=== PATIENT | male | born 1930 | race Caucasian/White ===

== ENCOUNTER 2017-01-18 22:43 | Inpatient (IN) | payer MEDICARE, OTHER ==
[~2017-01-18] VITALS: Ht 180.3 cm; Wt 77.1 kg
--- NOTE | ~2017-01-18 | CN ---
Consultation Report [facility] [address] [place]. [address] NAME: GOPAL TORRES : 31 STATUS : ADM IN [facility]#: [id number] AGE: 86 ADM/REG DATE : 01/19/17 MR#: [id number] REPORT SERV DATE: 01/22/17 DICTATED BY: JAY SAHA DATE: 01/21/17 REPORT STATUS : Draft TRANSCRIBED BY: MODL DATE: 01/21/17 DATE OF CONSULTATION: 01/21/2017 HISTORY OF PRESENT ILLNESS: This is an 86-year-old white male admitted with aspiration pneumonia, fever, dysarthria, and dysphagia; and had swallowing study back in September which he failed, he declined PEG at that time. Underwent stem therapy in [place] with no apparent improvement. Five to six weeks ago had repeat swallowing study which he did not pass. He has had chronic kidney disease, COPD, hypertension, spinal stenosis. He is on home O2. SOCIAL HISTORY: Negative. FAMILY HISTORY: Negative. He has been found to have positive XUAN of 1:160 and has been undergoing a neuro workup. MRI without contrast of the brain is negative. MRI with contrast is pending. LP was performed today looking and diagnosing ALS. White count was 15,000 on admission now 10,000, hemoglobin 15.7, platelets 192,000. He has a past history of colon polyps, history of hypertension. Family history positive for colon cancer. He has had inguinal hernia repairs bilaterally. Last EGD was in 02/2016. Dilatation with no improvement in symptoms. CT of abdomen this admission revealed diverticular disease and also . PHYSICAL EXAMINATION: GENERAL: Elderly white male with dysarthria, alert. HEENT: Anicteric. NECK: Negative. CHEST: Scattered rhonchi. Few rales. HEART: Regular rhythm without murmur or gallop. ABDOMEN: Soft, nontender. Bowel sounds active. EXTREMITIES AND NEUROLOGIC: Pertinent for dysarthria. ASSESSMENT: 1. Dysarthria with positive XUAN, neuro workup underway. 2. Dysphagia. History of failed swallowing study. has refused PEG in the past. 3. Chronic obstructive pulmonary disease on home O2. 4. Hypertension. 5. Aspiration pneumonia. 6. Chronic kidney disease. SUGGESTION: 1. The patient would like repeat swallowing study prior to making some decision on PEG. He has refused on one occasion. We will repeat swallowing study and then await his decision of possible PEG. Consultation Report [facility] [address] [place]. [address] NAME: GOPAL TORRES : 31 STATUS : ADM IN PAT#: [id number] AGE: 86 ADM/REG DATE : 01/19/17 MR#: [id number] REPORT SERV DATE: 01/22/17 DICTATED BY: JAY SAHA DATE: 01/21/17 REPORT STATUS : Draft TRANSCRIBED BY: NOEL DATE: 01/21/17 DC/NOEL Jay Saha M.D. / [id number] CC: DO Arnold Farmer DO
--- NOTE | ~2017-01-18 | CN ---
Consultation Report [facility] [address] [place]. [address] NAME: GOPAL TORRES : 31 STATUS : ADM IN PAT#: [id number] AGE: 86 ADM/REG DATE : 01/19/17 MR#: [id number] REPORT SERV DATE: 01/19/17 DICTATED BY: DATE: REPORT STATUS : Draft TRANSCRIBED BY: MODL DATE: 01/19/17 NEUROLOGY CONSULTATION DATE OF CONSULTATION: 01/19/2017 REASON FOR CONSULT: Dysphagia, dysarthria. HISTORY OF PRESENT ILLNESS: This is an 86-year-old male, who presented to [facility] secondary to fever as well as worsening dysarthria and dysphagia, with the patient's symptoms started roughly two to three months ago. The patient has had an evaluation with MRI as well as speech therapy. Has completed outpatient speech therapy treatment and with repeat swallow study, was noted to have worsening dysphagia. The patient in addition was noted to have persistent dysarthria, but denies any diplopia and denies any focal weakness or numbness. The patient denies any similar symptoms in the past and denies any waxing and waning of dysarthria and dysphagia, with the patient denies any symptom worsening with fatigue or exertion. The patient at baseline does have COPD, with the patient require use of oxygen, does not appear to have any significant worsening. The patient has had back pain and has recent adjustment of Neurontin, increased dosage to 200 mg p.o. b.i.d., which the patient reports after adjustment of Neurontin, the patient's gait appeared to have improved. The patient's denies any numbness in the extremities. The patient does have on and off fevers, with the patient most recently has had fever episodes on 01/18/2017 prompting the patient for emergency room presentation. No other recent illness, headache, weight loss were otherwise reported. The patient has had MRI in 09/2016 prior to patient's evaluation with a swallow study and speech therapy, but the patient is not aware of the results of MRI study. The patient is currently awaiting repeat MRI study in the hospital. Since the hospital admission, the patient reports the symptom has been stable. No recent complaint of a cognition difficulty was otherwise reported. No other changes in medication were otherwise reported. PAST MEDICAL HISTORY: Significant for chronic kidney disease, history of COPD, apparently with baseline dyspnea, history of spinal stenosis as well as prior GI bleeding, obstructive sleep apnea, on CPAP, as well as history of chronic hypoxic respiratory failure in the past, with the patient is on continuous supplemental oxygen at 2 L at home, history of diverticulosis and hypertension. FAMILY HISTORY: No reports of family history of neuromuscular disease or dysphagia or dysarthria. SOCIAL HISTORY: Denies tobacco, alcohol, or recreational drug usage. ALLERGIES: THE PATIENT REPORTS ALLERGY TO IODINE. HOME MEDICATIONS: Consist of Tylenol, aspirin, vitamin D3, Nexium, Flonase, gabapentin, Mucinex, Combivent, Toprol, Singulair, Nitrostat, oxaprozin, simvastatin, tramadol, Anoro Consultation Report [address] [place]. [address] NAME: GOPAL TORRES : 32 STATUS : ADM IN [facility]#: [id number] AGE: 86 ADM/REG DATE : 01/19/17 MR#: [id number] REPORT SERV DATE: 01/19/17 DICTATED BY: DATE: REPORT STATUS : Draft TRANSCRIBED BY: MODL DATE: 01/19/17 Ellipta, Diovan, and multivitamin. REVIEW OF SYSTEMS: Negative except for those mentioned in the HPI. PHYSICAL EXAMINATION: VITAL SIGNS: The patient overnight was noted to have vital signs with T-max of 98.0, heart rate of 63-72, respirations of 14-20, and blood pressure of 96 to 112 over 54 to 59. GENERAL: The patient is well developed, well nourished, in no acute distress. CARDIOVASCULAR: Regular rate and rhythm. No carotid bruits were otherwise auscultated. PULMONARY: Clear to auscultation bilaterally. NEUROLOGICAL: Generally, the patient is alert and oriented to person, place, year, and month. Follows simple and 2-step commands. Moderate dysarthria was noted, but no aphasia at the time of evaluation. Intact registration and mild difficulty with recall. Cranial nerves 2-12: Pupils mildly asymmetric, but otherwise bilaterally reactive to light. Right pupil appeared to be mildly larger compared to the left pupil. Otherwise, extraocular eye movement was noted to be intact. No dysconjugate gaze was seen. The patient denies diplopia with intact blink to threat response. Symmetrical facial expression. Midline tongue. The patient was noted to have a symmetric palatal movement. Reports symmetrical facial sensation. Decreased hearing in bilateral ear, with patient demonstrated 5/5 bilateral upper and lower extremity strength. Normal muscle, bulk, and tone. Normal finger to-nose examination without ataxia. Deep tendon reflex was 2+ in bilateral upper extremity, 2+ in left lower extremity and trace in the right lower extremity. Otherwise, trace reflex in bilateral brachioradialis. Reports symmetrical sensation in bilateral upper and lower extremity. The patient at baseline was noted to have dyspnea. Gait was not evaluated secondary to dyspnea. LABORATORY STUDIES: Demonstrated white blood cell count of 15.3, hemoglobin of 13.6, hematocrit of 41.8, and platelet count of 169. Chemistry panel: Sodium of 145, potassium 4.0, chloride 111, bicarb 25, BUN of 30, creatinine of 1.57, glucose of 88, calcium of 9.0, magnesium 1.9. Serum procalcitonin level of 0.35, with the patient noted to have morning cortisol level of 20.4. CT scan performed in 09/2016 was reviewed which demonstrated no acute process. However, the patient was noted to have mid brain possible signal abnormality versus artifact. We will await patient's repeat MRI and compare with MRI from 09/2016. IMPRESSION: 1. Dysarthria. 2. Dysphagia. Symptoms ongoing for the past three to four months. The patient has completed outpatient speech therapy as well as repeat swallow study, with swallow study demonstrated worsening dysphagia. In addition, the patient was also noted to have low-grade fever of 100.3 upon ER presentation. We will check MRI of the brain compared to 09/2016 MRI for evaluation of possible mid brain abnormalities and any other progression compared to the MRI. May consider lumbar puncture. We will also check laboratory study. Consultation Report [facility] [address] [facility] [address] [place]. [address] NAME: GOPAL TORRES : 31 STATUS : ADM IN PAT#: [id number] AGE: 86 ADM/REG DATE : 01/19/17 MR#: [id number] REPORT SERV DATE: 01/19/17 DICTATED BY: DATE: REPORT STATUS : Draft TRANSCRIBED BY: MODL DATE: 01/19/17 RECOMMENDATION: 1. MRI of the brain pending. 2. Sedimentation rate, CRP, TSH, free T4, vitamin B12, folate, thiamine, and myasthenia gravis panel with morning labs. 3. May consider lumbar puncture. 4. May need MRI of the brain with contrast for further evaluation. 5. Secondary to persistent dysphagia as well as worsening symptom, may consider PEG tube placement. CCH/MODL Prasanna Carney MD / [id number] CC: DO Arnold Farmer DO
--- NOTE | ~2017-01-18 | DS ---
Discharge Summary [facility] [address] [facility] [place]. [address] NAME: GOPAL TORRES : 31 STATUS : DIS IN PAT#: [id number] AGE: 86 ADM/REG DATE : 01/19/17 MR#: [id number] REPORT SERV DATE: 01/28/17 DICTATED BY: LUIS EDUARDO DIXON DATE: 01/27/17 REPORT STATUS : Draft TRANSCRIBED BY: MODL DATE: 01/27/17 ADMISSION DATE: 01/19/2017 DISCHARGE DATE: 01/27/2017 DISCHARGE DIAGNOSES: 1. Dysphagia and dysarthria, likely secondary to history of stroke, status post PEG placement. 2. Sepsis present on admission secondary to aspiration pneumonia, resolved. 3. Chronic hypoxic respiratory failure with a history of chronic obstructive pulmonary disease. 4. Hypertension. 5. Chronic narcotic dependence. 6. Sinus bradycardia, resolved. PROCEDURE PERFORMED THIS ADMISSION: MRI brain without contrast, 01/19/2017 as well as MRA of the neck and head, written as opinion. No acute abnormality seen on MRI brain scans. No abnormality seen on MRI scans of the neck. No abnormality seen on MRA scans of the head. CT abdomen and pelvis, 01/21/2017, subsegmental atelectasis lingular segment in both posterior lung bases, dense coronary artery calcification. No acute abdominal or pelvic pathology. [id number] diverticulosis descending and sigmoid colon. No diverticulitis pattern. Swallow study, 01/22/2017, consistent with aspiration. Lumbar puncture, 01/21/2017, opening pressure 16 cm of water, closing pressure 11 cm of water. 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 "The one thing this test could not definitively rule out was motor neuron disease." " The test is not definitively identify the cause of this patient's symptoms, but again motor neuron disease is not taken out of consideration." HOSPITAL COURSE: Please refer to the history and physical dictated by admitting physician for a full history of this patient. Briefly, the patient presented with sepsis present on admission secondary to aspiration pneumonia in the setting of subacute history of dysphagia and dysarthria. For the patient's dysphagia and dysarthria, Neurology was consulted and started an extensive workup that included the imaging as above as well as multiple laboratory tests, many of which are still pending at discharge. Ultimately, after much discussion, Neurology felt that the most likely etiology of the patient's dysphagia and dysarthria was likely an old stroke. 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 [facility] [place]. [address] NAME: GOPAL TORRES : 31 STATUS : DIS IN PAT#: [id number] AGE: 86 ADM/REG DATE : 01/19/17 MR#: [id number] REPORT SERV DATE: 01/28/17 DICTATED BY: LUIS EDUARDO DIXON DATE: 01/27/17 REPORT STATUS : Draft TRANSCRIBED BY: MODAlanna DATE: 01/27/17 likely the culprit for the patient's dysarthria and dysphagia. Pertinent positive labs and their workup will be listed below as well as pending labs at discharge. Given the patient's significant dysphagia and dysarthria, GI was consulted as well, and the patient underwent a swallow study which revealed significant aspiration and so the patient underwent PEG placement on 01/24/2017, tolerated this procedure well without any complications, and after that time, the unit dietitian was consulted and recommended tube feeding regimen that has been initiated and is in the process of still titrating up, and he is near his goal tube feed rate of 75 mL/h with dieticians recommendations to be attached and discharge paper work. Of note, the patient will follow up with Neurology as an outpatient with specifically, Dr. Eubanks in one to two months for further discussion after all of his labs have resulted. Given the concern for a stroke as the etiology of this patient's presentation, he was started on 325 mg of aspirin daily. Initially, on admission, he had been treated empirically with high dose steroids. This was tapered quickly when suspicions for stroke became higher. The patient did present with sepsis secondary to aspiration pneumonia and was started on broad-spectrum antibiotics and underwent imaging as well as cultures. Ultimately, his sputum culture grew Stenotrophomonas as well as group A strep pyogenes, and given this unusual organism, ID was consulted. Ultimately, he was treated for a full course for aspiration pneumonia with Zosyn and his antibiotics are completed at the time of discharge. The patient has chronic hypoxic respiratory failure baseline with chronic baseline needed approximately 2 L of oxygen, and during this admission, he did require more oxygen than at baseline though he will need to decrease prior to discharge with treatment of his aspiration pneumonia. For the patient's hypertension, he was continued on his home medications with though was noted to have asymptomatic sinus bradycardia overnight during his admission with bradycardia to the 30s. Given this finding, his metoprolol was initially held and then re-initiated at a lower dose at 12.5 b.i.d., and with this decreased dose, his blood pressure did increase, and therefore, his valsartan dose was doubled with better control of his blood pressure. Today, 01/27/2017, the patient is found to be stable and wishes to return to his facility where he will continue to undergo physical therapy, as well as had tube feedings. The patient's sepsis has resolved. Vitals are stable and he is ready for discharge today. PERTINENT LAB FINDINGS THIS ADMISSION: XUAN titer 1:160. XUAN second titer 1:80. Sjogren's antibodies, anti SSA was positive, anti SSB was negative. CSF from lumbar puncture was unremarkable with the exception of 8 lymphocytes and 92 monocytes and a protein of 61. LISANDRO was 38. LISANDRO CSF is pending. VDRL CSF was nonreactive. Vitamin B1 was 258. Myasthenia gravis panel is pending. DISCHARGE MEDICATIONS: 325 mg of aspirin p.o. at bedtime; 600 mg of Daypro p.o. twice per day; 2000 units p.o. vitamin D3 every evening; Flonase nasal spray, two sprays every morning; gabapentin 250 mg per 5 mL oral solution, take 200 mg p.o. liquid through PEG tube at bedtime; guaifenesin 200 mg p.o. liquid every four hours; hydrochlorothiazide 12.5 mg p.o. daily; Singulair 10 mg p.o. every morning; 15 mL of multivitamin solution p.o. daily; Discharge Summary [facility] [address] [place]. [address] NAME: GOPAL TORRES Allison : 32 STATUS : DIS IN [facility]#: [id number] AGE: 86 ADM/REG DATE : 01/19/17 MR#: [id number] REPORT SERV DATE: 01/28/17 DICTATED BY: LUIS EDUARDO DIXON DATE: 01/27/17 REPORT STATUS : Draft TRANSCRIBED BY: NOEL DATE: 01/27/17 metoprolol tartrate 12.5 mg p.o. twice per day per PEG; Nexium 40 mg p.o. every morning; simvastatin 20 mg p.o. every morning; tramadol 50 mg p.o. twice per day as needed for pain; Anoro Ellipta one puff inhaled every morning; valsartan 160 mg p.o. daily; Combivent one puff inhaled four times a day p.r.n. for shortness of breath; Pulmicort 0.5 mg inhaled twice per day; Tylenol 650 mg p.o. liquid every four hours p.r.n.; Zenpep delayed release 5000 unit capsule one cap p.o. p.r.n. if other tube clogging measures are unsuccessful use pancrelipase capsule and mix contents was crushed sodium bicarb 325 tab; sodium bicarb 325 mg p.o. p.r.n. as above; 0.4 mg sublingual nitroglycerin p.r.n. for chest pain. Tube feeding orders per the unit audiometric technician will be supplied. FOLLOWUP: As mentioned prior, the patient will be discharged to his prior facility for continuing therapy as well as tube feedings. He will follow up with Neurology, specifically Dr. Eubanks in one to two months for followup of his labs, review of his data, and continued evaluation of his dysphagia and dysarthria. Approximately 45 minutes were spent coordinating this patient's discharge. JUNG/NOEL Luis Eduardo Dixon MD / [id number] CC: MD Arnold Tello DO
--- NOTE | ~2017-01-18 | HP ---
History And Physical [place] [id number] [facility] [place]. [address] NAME: GOPAL AKERS : 32 STATUS : ADM IN [facility]#: [id number] AGE: 86 ADM/REG DATE : 01/19/17 MR#: [id number] REPORT SERV DATE: 01/19/17 DICTATED BY: IVAN HOOVER DATE: 01/19/17 REPORT STATUS : Draft TRANSCRIBED BY: MODL DATE: 01/19/17 DATE OF ADMISSION: 01/19/2017 CHIEF COMPLAINT: Febrile illness and difficulty speaking. HISTORY OF PRESENT ILLNESS: This is an 86-year-old male, resident of [facility] where he lives independently with his . The patient presents to the emergency room at [facility] after he had the above-mentioned complaints. History was obtained from the patient, but more so from his and reviewing data available on the [employer] system as well as the patient's data which was sent along with him from the facility. According to Ms. Akers, he had been having issues with swallowing and aspiration for the last two to three months. He has had swallow studies, followed by Speech Therapy and at the end of which a repeat swallow study was done. This showed that he was continuing to aspirate. During this time, he has also had some difficulty with speech according to her. However, yesterday, after supper, he complained he was not feeling good, and she checked his temperature and was over 100 degrees Fahrenheit. It appeared to her that he had more speech impairments and they decided to come to the emergency room to be evaluated. In the emergency room, he had a febrile illness along with an abnormal chest x-ray and he also had leukocytosis. Along with this, he had significant dysarthria as well, which the says is new. She also says he could have aspirated while he had his supper. Hospitalist Service is asked to admit him for further evaluation and treatment. At the time of my evaluation, he denied any chest pain or palpitations. He had no orthopnea. He had no cough, hemoptysis, night sweats, or weight loss. No history of recent falls or loss of consciousness. No history of nausea, vomiting, diarrhea, hematemesis, hematochezia, or hematuria. No other history of recent travel or exposures other than those mentioned above. PAST MEDICAL HISTORY: Significant for history of chronic kidney disease, COPD, hypertension, diverticulosis, history of spinal stenosis history of prior GI bleed, obstructive sleep apnea, on CPAP with 2 L of oxygen bleed in. He also has a history of chronic hypoxic respiratory failure on continuous supplemental oxygen therapy at 2 L/minute. SOCIAL HISTORY: He does not smoke, drink, or use recreational drugs at this time. FAMILY HISTORY: Noncontributory. MEDICATIONS: At home were reviewed by me in the chart today and reordered by me. REVIEW OF SYSTEMS: As in history of present illness. All other systems were reviewed in detail and quite unremarkable. History And Physical [address] [address] NAME: GOPAL AKERS : 32 STATUS : ADM IN [facility]#: [id number] AGE: 86 ADM/REG DATE : 01/19/17 MR#: [id number] REPORT SERV DATE: 01/19/17 DICTATED BY: IVAN HOOVER DATE: 01/19/17 REPORT STATUS : Draft TRANSCRIBED BY: NOEL DATE: 01/19/17 PHYSICAL EXAMINATION: GENERAL: This is a pleasant 86-year-old not in any acute distress. HEENT: His head is atraumatic, normocephalic. He is alert, awake, and oriented to time, place, and person. His pupils are equal, reacting to light and accommodating. External ocular muscles are intact. Membranes are moist and pink. Sclerae are nonicteric. NECK: Supple with no jugular venous distention, lymphadenopathy, or thyromegaly. LUNGS: Clear to auscultation with no wheezes, rubs, or crackles. HEART: Heart sounds were regular with no murmurs, rubs, or gallops. ABDOMEN: Soft and nontender. Bowel sounds are present. EXTREMITIES: Showed no cyanosis, clubbing, or edema. NEURO: Grossly intact. No focal sensory or motor deficits. Higher functions appeared intact. He was able to move all four extremities. Gait was not examined. VITAL SIGNS: His temperature when he arrived was 100.3 degrees Fahrenheit, pulse was 93, respirations 20 a minute, and blood pressure was 141/76. Oxygen saturations were 91% breathing 2-3 L via nasal cannula when he arrived. LABORATORY DATA: Reviewed on the [employer] system showed a sodium of 143, potassium 4.3, chloride 108, and CO2 of 24. BUN was 30 with a creatinine of 1.60 and glucose was 82. His lactate was 1.4 today. Troponin was not done. CBC revealed a white blood cell count of 15,400, hemoglobin was 15.7, hematocrit 47.7, and platelet count was 182,000. Urinalysis was grossly unremarkable today. Films of the chest x-ray were reviewed by me on the PACS today and interpreted by me. Per my interpretation, there is normal bony architecture with no cardiomegaly. There appeared to be right lower lobe airspace disease with no pleural effusions seen. A 12-lead EKG done in emergency room was reviewed and interpreted by me. There is sinus rhythm at a rate of 97 with occasional PVCs. There is right bundle-branch block as well. IMPRESSION: 1. Febrile illness. 2. Pneumonia, possibly secondary to chronic aspiration. 3. Leukocytosis. 4. Dysarthria. 5. Chronic kidney disease. 6. Chronic obstructive pulmonary disease. 7. Hypertension. 8. Obstructive sleep apnea. 9. Chronic hypoxic respiratory failure on continuous supplemental oxygen therapy. PLAN: We will admit Mr. Akers to the Hospitalist Service to a med/surg tele bed. We will obtain cultures, start him on empiric IV antibiotics. Check a followup lactate as well. We will start him on bronchodilator treatments, continue supplemental oxygen therapy, and add mucolytics to his regimen. We will repeat CBC, CMP in the morning as well. Regarding his dysarthria, we will go ahead and get an MRI and MRA of his brain and consult Neurology Service to evaluate him. His thought his dysarthria was part of his aspiration. As mentioned above, we will go ahead and consult Neurology to evaluate and offer History And Physical [address] [address] NAME: GOPAL AKERS : 32 STATUS : ADM IN [facility]#: [id number] AGE: 86 ADM/REG DATE : 01/19/17 MR#: [id number] REPORT SERV DATE: 01/19/17 DICTATED BY: IVAN HOOVER DATE: 01/19/17 REPORT STATUS : Draft TRANSCRIBED BY: MODL DATE: 01/19/17 recommendations as well. Meanwhile, we will continue other medications and treatments, and I will place him on unfractionated heparin for DVT prophylaxis while here. I have discussed the above plan with the patient and his . Questions were answered and they are agreeable to the above recommendations. Hospitalist Service will be following him during his stay here. NANCY Ivan Hoover M.D. / [id number] CC: DO Arnold Farmer DO
--- NOTE | ~2017-01-18 | EMG ---
Electromyelogram [facility] [address] [address] NAME: GOPAL TORRES : 32 STATUS : ADM IN PAT#: [id number] AGE: 86 ADM/REG DATE : 01/19/17 MR#: [id number] REPORT SERV DATE: 01/22/17 DICTATED BY: RAH EUBANKS DATE: 01/22/17 REPORT STATUS : Draft TRANSCRIBED BY: MODAlanna DATE: 01/22/17 BRIEF HISTORY AND PHYSICAL EXAMINATION: This is an 86-year-old male, who is currently hospitalized at [facility] for aspiration pneumonia. Dr. Carney was consulted and she asked me to do this study to look for potential neuromuscular causes of dysphagia in this patient. He gave her history of several months of difficulty swallowing, however, during the test today, he wondered if perhaps this has been going on for as long as two years and talking to me. He said his legs have been weak for about three years. On brief examination, his speech is dysarthric. I do not see any clear vesiculations in the tongue or atrophy. The tongue movements are slow. He did have a moderate degree of neck flexion, weakness, as well as some mild weakness in the right deltoid and triceps, the bilateral biceps, the right hand intrinsic muscles and the right abductor pollicis brevis. Sensation was mildly reduced in the feet. Reflexes were actually brisk throughout except for a trace right patellar jerk, bilateral Escalera's responses were weakly positive, bilateral Babinski responses were negative, bilateral crossed adductor responses were positive. NERVE CONDUCTION FINDINGS: The right sural sensory potential displayed mildly low amplitude. The right ulnar sensory potential displayed moderately low amplitude. The right peroneal motor response displayed moderately low amplitude with mild distally accentuated velocity slowing. The right tibial motor response displayed mild velocity slowing. The right median motor response displayed mild distal latency prolongation with moderate loss of amplitude. The right ulnar motor response displayed mild loss of amplitude. F-waves were consistent and easily obtained for all four of these motor nerves. All of these F-waves were within normal limits except that the right tibial F-wave was mildly prolonged. Please see the accompanying data tables and waveforms. EMG FINDINGS: The right adductor pollicis brevis displayed some interspersed large motor units with slight recruitment reduction. The right vastus medialis and vastus lateralis displayed mild motor unit enlargement and mild recruitment reduction. The left C6, bilateral C8, and bilateral T6 paraspinal displayed some bejn-zx-[id number] positive sharp waves. The left L4 paraspinal displayed a complex repetitive discharge. The right C6 paraspinal was too poorly relaxed to allow adequate assessment for spontaneous activity. All other distal and proximal bilateral arm and right leg muscles tested were normal. The right genioglossus was normal. All other levels of bilateral cervical, thoracic, and lumbosacral paraspinals tested were normal. Please see the accompanying data table. OVERALL INTERPRETATION: This is an abnormal study due to the following findings; however, I would caution that there was nothing abnormal on this test that clearly and definitively explains this patient's dysphagia. 1. 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 This was not clearly length dependent. There were no features to suggest Guillain-[place] syndrome or CIDP. The overall pattern was fairly nonspecific. 2. The spontaneous EMG activity seen in some of the cervical and thoracic paraspinals is of unclear significance in the absence of any denervation changes seen elsewhere on this test. One cannot make a definitive diagnosis of motor neuron disease based on these findings; however, the presence of these findings means, the motor neuron disease cannot be ruled out. Electromyelogram [address] [address] NAME: GOPAL TORRES : 32 STATUS : ADM IN PAT#: [id number] AGE: 86 ADM/REG DATE : 01/19/17 MR#: [id number] REPORT SERV DATE: 01/22/17 DICTATED BY: RAH EUBANKS DATE: 01/22/17 REPORT STATUS : Draft TRANSCRIBED BY: MODL DATE: 01/22/17 3. The mild motor unit enlargement and recruitment reduction seen in the right quadriceps muscles may relate better to this patient's remote spine disease. After the test was over, he did admit that he has undergone a lumbar surgery involving L4 and these EMG findings certainly could fit with a chronic right L4 radiculopathy with no evidence of ongoing denervation. 4. 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 Repetitive nerve stimulation showed no electrographic evidence of neuromuscular junctional defect such as myasthenia gravis. Additionally, the EMG was not consistent with myopathy. There was also no electrographic evidence of right cubital tunnel syndrome, bilateral brachial or right lumbosacral plexopathy and bilateral cervical or right lumbosacral radiculopathy at any other level. CLINICAL CORRELATION: I DISCUSSED THESE FINDINGS WITH THE PATIENT AND WITH DR. BRICENO. CLINICALLY, I FIND IT VERY DIFFICULT TO BLAME THIS PATIENT'S DYSPHAGIA ON THE SENSORY MOTOR NEUROPATHY THAT WAS SEEN. THE CHEST APPEARS DO A GOOD JOB OF RULING OUT MYOPATHY, AND CLINICALLY SPEAKING RELATIVELY ISOLATED DYSPHAGIA WOULD BE A VERY UNUSUAL WAY FOR MYOPATHY TO PRESENT ANYWAY. REPETITIVE STIMULATION IS NOT THE MOST SENSITIVE TECHNIQUE FOR DETECTING NEUROMUSCULAR JUNCTIONAL DEFECTS; HOWEVER, TWO NERVES WERE CHECKED IN THIS FASHION ON THIS TEST AND FINDINGS WERE NEGATIVE FOR DEFECTS SUCH MYASTHENIA GRAVIS. AGAIN, RELATIVELY ISOLATED DYSPHAGIA TO THIS SIGNIFICANT DEGREE WOULD BE A VERY UNUSUAL WAY FOR MYASTHENIA OR LAMBERT-EATON MYASTHENIC SYNDROME TO PRESENT. OBVIOUSLY, QUESTIONS REGARDING CARPAL TUNNEL SYNDROME AND REMOTE L4 RADICULOPATHY ARE IRRELEVANT TO DYSPHAGIA. THE ONE THING THIS TEST COULD NOT DEFINITIVELY RULE OUT WAS MOTOR NEURON DISEASE. THIS PATIENT COULD HAVE BEEN A MORE UPPER MOTOR NEURON PREDOMINANT AND BULBAR ONSET FORM OF ALS OR RELATED MOTOR NEURON DISEASES SUCH PLS. WHEN PERFORMING EMG TO LOOK FOR SUCH CONDITIONS, SUPPORTING EVIDENCE WOULD INCLUDE MULTIPLE MUSCLES IN THE CERVICAL, THORACIC, AND LUMBOSACRAL MYOTOMES EXHIBITING EVIDENCE OF NEUROGENIC DYSFUNCTION. IN THE CASE OF THIS PATIENT, WE REALLY ONLY SEE ANYTHING LIKE THIS IN SOME OF THE CERVICAL AND THORACIC PARASPINALS WITHOUT ANY CLEAR EVIDENCE IN THE ARMS, RIGHT LEG, THORACIC PARASPINALS OR GENIOGLOSSUS MUSCLE. SUCH, THE TEST DOES NOT DEFINITIVELY IDENTIFY THE CAUSE OF THIS PATIENT'S SYMPTOMS BUT AGAIN MOTOR NEURON DISEASE IS NOT TAKEN OUT OF CONSIDERATION. NBW/MODL Rah Eubanks MD / [id number] CC: MD Arnold Tello,
--- NOTE | ~2017-01-18 | EGD ---
EGD REPORT [facility] [address] [place] [address] NAME: GOPAL AKERS : 31 STATUS : ADM IN PAT#: [id number] AGE: 86 ADM/REG DATE : 01/19/17 MR#: [id number] REPORT SERV DATE: 01/24/17 DICTATED BY: JAY SAHA DATE: 01/24/17 REPORT STATUS : Draft [facility]ANSCRIBED [facility]: [facility] DATE: 01/24/17 Endoscopy Center Patient Name: Gopal Akers. Date of : 1930 Attending MD: JAY SAHA MD Procedure Date No Time: 01/24/2017 Procedure: Upper GI endoscopy Indications: Place PEG due to dysphagia, Place PEG due to impaired swallowing, Place PEG due to aspiration risk, Place PEG due to neurological disorder causing impaired swallowing Referring MD: Arnold Espana Medicines: as per anesthesia Complications: No immediate complications. Procedure: Pre-Anesthesia Assessment: - ASA Grade Assessment: III - A patient with severe systemic disease. After obtaining informed consent, the endoscope was passed under direct vision. Throughout the procedure, the patient's blood pressure, pulse, and oxygen saturations were monitored continuously. The GIF [id number] was introduced through the mouth, and advanced to the third part of duodenum. The upper GI endoscopy was accomplished without difficulty. The patient tolerated the procedure. Findings: The examined esophagus was normal. Localized mild inflammation characterized by erythema was found in the gastric antrum. The cardia and gastric fundus were normal on retroflexion. The examined duodenum was normal. The patient was placed in the supine position for PEG placement. The stomach was insufflated to appose gastric and abdominal ocampo. A site was located in the body of the stomach with good transillumination for placement. The abdominal wall was marked and prepped in a sterile manner. The area was anesthetized with 5 mL of 1% lidocaine. The trocar needle was introduced through the abdominal wall and into the stomach under direct endoscopic view. A snare was introduced through the endoscope and opened in the gastric lumen. The guide wire was passed through the trocar and into the open snare. The snare was closed around the guide wire. The endoscope and snare were removed, pulling the wire out through the mouth. A skin incision was made at the site of needle insertion. The externally removable 24 Fr EndoVive Safety gastrostomy tube was lubricated. The G-tube was tied to the guide wire and pulled through the mouth and into the stomach. The trocar needle was removed, EGD REPORT [address] [place]. [address] NAME: GOPAL AKERS : 32 STATUS : ADM IN [facility]#: [id number] AGE: 86 ADM/REG DATE : 01/19/17 MR#: [id number] REPORT SERV DATE: 01/24/17 DICTATED BY: JAY SAHA DATE: 01/24/17 REPORT STATUS : Draft TRANSCRIBED BY: [employer] DATE: 01/24/17 and the gastrostomy tube was pulled out from the stomach through the skin. The external bumper was attached to the gastrostomy tube, and the tube was cut to remove the guide wire. The final position of the gastrostomy tube was confirmed by relook endoscopy, and skin marking noted to be 2.5 cm at the external bumper. The final tension and compression of the abdominal wall by the PEG tube and external bumper were checked and revealed that the bumper was loose and lightly touching the skin and that the PEG balloon was loose and lightly touching the stomach. The feeding tube was capped, and the tube site cleaned and dressed. Impression: - Normal esophagus. - Gastritis. - Normal examined duodenum. - An externally removable PEG placement was successfully completed. Recommendation: - Please follow the post-PEG recommendations. Procedure Code(s): --- Professional --- 95441, Esophagogastroduodenoscopy, flexible, transoral; with directed placement of percutaneous gastrostomy tube Diagnosis Code(s): --- Professional --- K29.70, Gastritis, unspecified, without bleeding R13.10, Dysphagia, unspecified Z43.1, Encounter for attention to gastrostomy R63.3, Feeding difficulties R29.81, Other symptoms and signs involving the nervous system CPT copyright 2013 [employer]. All rights reserved. The codes documented in this report are preliminary and upon outpatient coder review may be revised to meet current compliance requirements. JAY SAHA MD 01/24/2017 2:24 PM This report has been signed electronically. Number of Addenda: 0 Note Initiated On: 01/24/2017 1:40 PM Scope Withdrawal Time 0 hours 0 minutes 0 seconds [address] [address]
--- NOTE | ~2017-01-18 | CN ---
Consultation Report [place] [address] [place]. [address] NAME: GOPAL TORRES : [birth year] STATUS : ADM IN [facility]#: [id number] AGE: 86 ADM/REG DATE : 01/19/17 MR#: [id number] REPORT SERV DATE: 01/24/17 DICTATED BY: LULA KEEN DATE: 01/24/17 REPORT STATUS : Draft TRANSCRIBED BY: MODL DATE: 01/24/17 DATE OF CONSULTATION: REASON FOR REFERRAL: Evaluation and treatment of an unusual pathogen in sputum. HISTORY OF PRESENT ILLNESS: The patient is an 86-year-old male. He has a history of hypertension, chronic obstructive pulmonary disease, and obstructive sleep apnea. He is on home O2 for some time. He came in on January night with cough and increasing shortness of breath. He has apparently had for several weeks to months difficulty with swallowing and choking, and concern has been raised for aspiration. He had a fever of 100.3 at admission, elevated white blood cell count and chest x-ray with bilateral infiltrates suggestive of pneumonia. Cultures were ordered, and he was started empirically on vancomycin and Zosyn. His sputum was a poor specimen based on the Gram stain, only had 10 white cells and grew abundant group A strep as well as sparse Stenotrophomonas maltophilia. Vancomycin was stopped. He was continued on Zosyn. His temperature and white blood cell count have normalized, and he feels much better. He had a swallow test showing significant aspiration, so a PEG tube has now been placed. He is being followed and worked up by Neurology to determine the etiology of the swallowing difficulty and so far that workup has been negative. PAST MEDICAL HISTORY: Otherwise unremarkable. MEDICATIONS: As stated, he is on Zosyn. He has no known antimicrobial allergies. He is retired, , lives in [facility], previous smoker. No history of alcohol or substance abuse. FAMILY HISTORY: Noncontributory. PHYSICAL EXAMINATION: GENERAL: Chronically ill appearing but nontoxic elderly male, some difficulty with slow speech but understandable. He is alert and oriented x3. VITAL SIGNS: His temperature has been normal since shortly after arrival and most recently was 97.3 with a pulse of 54, respirations 21, blood pressure 176/77, and weight 77 kg. HEENT: Sclerae clear. He has very dry mucous membranes in his mouth. NECK: Supple. LUNGS: There are a few crackles in the bases otherwise clear. HEART: Regular rate and rhythm. ABDOMEN: Soft, expected tenderness from the PEG, which was just done today. Positive bowel sounds are heard. EXTREMITIES: Without clubbing or cyanosis. LABORATORY DATA: White count 15.4 when he came in, it is 6.9 today with hematocrit 43.2, platelets 180. Normal differential. He had a sed rate of 60 when he came in, it was down to 35 two days ago. BUN and creatinine 27 and 1.03. Procalcitonin 0.46 Blood cultures taken at admission are negative. Consultation Report [place] [id number] [place]. [address] NAME: GOPAL TORRES : 32 STATUS : ADM IN [facility]#: [id number] AGE: 86 ADM/REG DATE : 01/19/17 MR#: [id number] REPORT SERV DATE: 01/24/17 DICTATED BY: LULA KEEN DATE: 01/24/17 REPORT STATUS : Draft TRANSCRIBED BY: NOEL DATE: 01/24/17 IMPRESSION: I feel this is an aspiration pneumonitis, and he has responded well to good antimicrobial coverage for that, most likely organisms are upper GI chiquis like alpha strep and anaerobes. The culture really came from spit based on the Gram stain, and in particular I do not think the Stenotrophomonas is of any significance since it is usually not a pathogen anyway, and I feel this represents colonization here and does not need to be treated. RECOMMENDATIONS: 1. Agree with Zosyn. 2. By tomorrow in fact the antibiotics could be stopped. He could likely be discharged. 3. We will follow up the patient again tomorrow morning and reassess. I appreciate very much you consulting on this patient. ROMEL/NOEL Lula Keen M.D. / [id number] CC: MD Arnold Tello DO
[~2017-01-18 22:43] MED LIST: ACET500CAP PO; ADVAIR250 INH; ANOROELLIPTA INH; ASAB PO; CALTRA600D PO; CENTRUM TAB1 TAB PO; CIALIS10 MG PO; CLARIT10 PO; COMBIVENT INH; COMBIVENT RESPIM4 GM INH; DCN100 PO; DIOVAN HCT PO; EYE VITAMINS OR; FLONASE NAS; HALF81 PO; LEVITRA5 PO; MIRAPEX0.75 MG PO; MUCINEX D1 TA1 OR; MUCINEX1200 MG PO; MULTIPLE VIT PO; MULTIVIT/MIN PO; NEUR100 PO; NEUR300 PO; NEXIUM40 PO; NITROQUICK0.4 MG SL; NITROSTAT0.3 MG SL; NITROSTAT0.4 MG SL; OCUVITE PO; OS500+D PO; OXAPROZIN600 MG PO; PRESERVISION A1 EAC1 PO; PRESERVISION PO; SINGULAIR1 PO; T PO; TOPXL50 PO; ULTRAM50 PO; VITAMIN D1000 UNI1 PO; VITAMIN D31000 UNIT PO; VYTORIN 10/40 T1 TAB PO; [UNRECOGNIZED DRUG - OTHER]; [UNRECOGNIZED DRUG - OTHER]
[2017-01-19 00:26] LABS: BASOPHILS 0.1 %; BASOPHILS ABSOLUTE 0.02 10/3/uL (0.0-0.16); EOSINOPHILS 0.8 %; EOSINOPHILS ABSOLUTE 0.12 10/3/uL (0.0-0.53); HEMATOCRIT 47.7 % (40.0-51.0); HEMOGLOBIN 15.7 g/dL (13.6-17.8); IMMATURE GRANULOCYTES 0.3 %; IMMATURE GRANULOCYTES ABSOLUTE 0.04 10/3/uL (0.0-0.11); LYMPHOCYTES 6.7 %; LYMPHOCYTES ABSOLUTE 1.03 10/3/uL (0.67-4.30); MEAN CORPUS HGB CONC 32.9 g/dL (32.0-36.0); MEAN CORPUSCULAR HEMOGLOB 33.2 pg (26.0-34.0); MEAN CORPUSCULAR VOLUME 100.8 fL (80-100); MEAN PLATELET VOLUME 10.9 fL (9.2-13.0); MONOCYTES 6.2 %; MONOCYTES ABSOLUTE 0.96 10/3/uL (0.21-1.20); NEUTROPHILS 85.9 %; NEUTROPHILS ABSOLUTE 13.22 10/3/uL (2.02-8.40); PLATELET COUNT 182 10/3/uL (150-400); RBC DISTRIBUTION WIDTH 14.5 % (12.0-16.0); RED CELL COUNT 4.73 10/6/uL (4.7-6.1); WHITE BLOOD CELLS 15.4 10/3/uL (4.5-10.5)
[2017-01-19 00:28] LABS: ER CBC TAT 0 Hrs 05 MinsNP; MANUAL DIFF NO %
[2017-01-19 00:35] LABS: INTERNATIONAL NORMAL RATI 1.1 UNITS (-); PARTIAL THROMBO TIME 35.2 SEC (22.5-37.2)
[2017-01-19 00:42] LABS: A/G RATIO 0.7 (0.7-1.9); ALBUMIN 3.4 G/DL (3.5-5.0); ALKALINE PHOSPHATASE 72 U/L (45-117); CALCIUM, SERUM 9.6 MG/DL (8.5-10.4); CHLORIDE, SERUM 108 MMOL/L (96-112); CO2 (CARBON DIOXIDE) 24 MMOL/L (24-34); POTASSIUM, SERUM 4.3 MMOL/L (3.5-5.3); SGOT(AST) 20 U/L (5-40); SGPT(ALT) 19 U/L (5-65); SODIUM, SERUM 143 MMOL/L (135-148); TOTAL BILIRUBIN 0.6 MG/DL (0-1.2)
[2017-01-19 00:43] LABS: LACTATE 1.4 MMOL/L (0.3-2.4)
[2017-01-19 00:45] LABS: BUN (BLOOD UREA NITROGEN) 30 MG/DL (6-23); GFR AFRICAN AMERICAN 45 ML/MIN (>=60); GFR NON AFRICAN AMERICAN 39 ML/MIN (>=60); GLOBULIN 4.6 G/DL (2.5-4.1); GLUCOSE, SERUM 82 MG/DL (60-99)
[2017-01-19 01:12] LABS: PROCALCITONIN 0.35 ng/mL (<0.5)
[2017-01-19 02:01] LABS: ASCORBIC ACID (UR NOT ORDER) 20 (NEG); BILIRUBIN, URINE NEGATIVE (NEG); ER URINALYSIS TAT 0 Hrs 00 Mins; KETONE, URINE TRACE MG/DL (NEG); LEUKOCYTE ESTERASE(NOT OR NEG (NEG); NITRITE (URINE) NEG (NEG); WBC (NOT ORDERED) (RFLEX) 1 (0-5)
[2017-01-19] MEDS ORDERED: ZOCOR20 PO (03:15)
[2017-01-19] MEDS ORDERED: TOPXL50 PO (03:16)
[2017-01-19] MEDS ORDERED: DIOVAN HCT PO (03:16)
[2017-01-19] MEDS ORDERED: OXAPROZIN600 MG PO (03:17)
[2017-01-19] MEDS ORDERED: COMBIVENT RESPIM4 GM INH (03:17)
[2017-01-19] MEDS ORDERED: NITROSTAT0.4 MG SL (03:18)
[2017-01-19] MEDS ORDERED: ANOROELLIPTA INH (03:18)
[2017-01-19] MEDS ORDERED: NEUR100 PO (03:18)
[2017-01-19] MEDS ORDERED: FLONASE NAS (03:19)
[2017-01-19] MEDS ORDERED: ACET500CAP PO (03:20)
[2017-01-19] MEDS ORDERED: ULTRAM50 PO (03:20)
[2017-01-19] MEDS ORDERED: NEXIUM40 PO (03:22)
[2017-01-19] MEDS ORDERED: VITAMIN D31000 UNIT PO (03:23)
[2017-01-19] MEDS ORDERED: ASAB PO (03:23)
[2017-01-19] MEDS ORDERED: PRESERVISION A1 EACH PO (03:23)
[2017-01-19] MEDS ORDERED: SINGULAIR1 PO (03:23)
[2017-01-19] MEDS ORDERED: MULTIVIT/MIN PO (03:24)
[2017-01-19] MEDS ORDERED: MUCINEX1200 MG PO (03:24)
[2017-01-19] MEDS ORDERED: PHILLIP COLON HEALTH PO (03:25)
[2017-01-19 07:00] LABS: BASOPHILS 0.1 %; BASOPHILS ABSOLUTE 0.02 10/3/uL (0.0-0.16); EOSINOPHILS 0.7 %; EOSINOPHILS ABSOLUTE 0.11 10/3/uL (0.0-0.53); HEMOGLOBIN 13.6 g/dL (13.6-17.8); IMMATURE GRANULOCYTES 0.5 %; IMMATURE GRANULOCYTES ABSOLUTE 0.07 10/3/uL (0.0-0.11); LYMPHOCYTES 9.5 %; LYMPHOCYTES ABSOLUTE 1.45 10/3/uL (0.67-4.30); MEAN CORPUS HGB CONC 32.5 g/dL (32.0-36.0); MEAN CORPUSCULAR HEMOGLOB 32.9 pg (26.0-34.0); MEAN PLATELET VOLUME 10.5 fL (9.2-13.0); MONOCYTES 9.3 %; MONOCYTES ABSOLUTE 1.42 10/3/uL (0.21-1.20); NEUTROPHILS 79.9 %; NEUTROPHILS ABSOLUTE 12.24 10/3/uL (2.02-8.40); PLATELET COUNT 169 10/3/uL (150-400); RBC DISTRIBUTION WIDTH 14.7 % (12.0-16.0); RED CELL COUNT 4.14 10/6/uL (4.7-6.1); WHITE BLOOD CELLS 15.3 10/3/uL (4.5-10.5)
[2017-01-19 07:01] LABS: HEMATOCRIT 41.8 % (40.0-51.0); MANUAL DIFF NO %
[2017-01-19 07:12] LABS: BUN (BLOOD UREA NITROGEN) 31 MG/DL (6-23); CHLORIDE, SERUM 111 MMOL/L (96-112); CO2 (CARBON DIOXIDE) 25 MMOL/L (24-34); CREATININE 1.57 MG/DL (0.70-1.30); GFR AFRICAN AMERICAN 46 ML/MIN (>=60); GFR NON AFRICAN AMERICAN 40 ML/MIN (>=60); GLUCOSE, SERUM 88 MG/DL (60-99); PHOSPHORUS, SERUM 2.6 MG/DL (2.5-4.5); SODIUM, SERUM 145 MMOL/L (135-148)
[2017-01-20 06:39] LABS: BASOPHILS 0 %; EOSINOPHILS 0 %; HEMATOCRIT 44.3 % (40.0-51.0); HEMOGLOBIN 14.3 g/dL (13.6-17.8); IMMATURE GRANULOCYTES 0.3 %; IMMATURE GRANULOCYTES ABSOLUTE 0.03 10/3/uL (0.0-0.11); LYMPHOCYTES 10.4 %; MANUAL DIFF NO %; MEAN CORPUS HGB CONC 32.3 g/dL (32.0-36.0); MEAN CORPUSCULAR HEMOGLOB 32.6 pg (26.0-34.0); MEAN CORPUSCULAR VOLUME 100.9 fL (80-100); MEAN PLATELET VOLUME 10.5 fL (9.2-13.0); MONOCYTES 7.8 %; MONOCYTES ABSOLUTE 0.67 10/3/uL (0.21-1.20); NEUTROPHILS 81.5 %; NEUTROPHILS ABSOLUTE 7.03 10/3/uL (2.02-8.40); PLATELET COUNT 183 10/3/uL (150-400); RBC DISTRIBUTION WIDTH 14.7 % (12.0-16.0); RED CELL COUNT 4.39 10/6/uL (4.7-6.1); WHITE BLOOD CELLS 8.6 10/3/uL (4.5-10.5)
[2017-01-20 07:15] LABS: PROCALCITONIN 0.46 ng/mL (<0.5)
[2017-01-20 07:29] LABS: BUN (BLOOD UREA NITROGEN) 28 MG/DL (6-23); CALCIUM, SERUM 9.4 MG/DL (8.5-10.4); CHLORIDE, SERUM 113 MMOL/L (96-112); CO2 (CARBON DIOXIDE) 23 MMOL/L (24-34); CREATININE 1.34 MG/DL (0.70-1.30); FREE T4 1.34 NG/DL (0.76-1.46); GFR AFRICAN AMERICAN 56 ML/MIN (>=60); GFR NON AFRICAN AMERICAN 48 ML/MIN (>=60); PHOSPHORUS, SERUM 2.7 MG/DL (2.5-4.5); POTASSIUM, SERUM 4.1 MMOL/L (3.5-5.3); SODIUM, SERUM 147 MMOL/L (135-148)
[2017-01-20 07:30] LABS: FOLATE 33.6 NG/ML (>5.2); GLUCOSE, SERUM 111 MG/DL (60-99)
[2017-01-20 08:13] LABS: SED RATE 60 MM/HR (0-15)
[2017-01-21 07:05] LABS: BASOPHILS 0 %; EOSINOPHILS 0 %; HEMATOCRIT 41.9 % (40.0-51.0); HEMOGLOBIN 13.6 g/dL (13.6-17.8); IMMATURE GRANULOCYTES 0.4 %; IMMATURE GRANULOCYTES ABSOLUTE 0.04 10/3/uL (0.0-0.11); LYMPHOCYTES 11.6 %; LYMPHOCYTES ABSOLUTE 1.21 10/3/uL (0.67-4.30); MEAN CORPUS HGB CONC 32.5 g/dL (32.0-36.0); MEAN CORPUSCULAR HEMOGLOB 32.8 pg (26.0-34.0); MEAN PLATELET VOLUME 10.2 fL (9.2-13.0); MONOCYTES 10.2 %; MONOCYTES ABSOLUTE 1.06 10/3/uL (0.21-1.20); NEUTROPHILS 77.8 %; NEUTROPHILS ABSOLUTE 8.08 10/3/uL (2.02-8.40); PLATELET COUNT 189 10/3/uL (150-400); RBC DISTRIBUTION WIDTH 14.6 % (12.0-16.0); RED CELL COUNT 4.15 10/6/uL (4.7-6.1); WHITE BLOOD CELLS 10.4 10/3/uL (4.5-10.5)
[2017-01-21 07:08] LABS: MANUAL DIFF NO %
[2017-01-21 07:17] LABS: ACETONE NEG
[2017-01-21 07:21] LABS: BUN (BLOOD UREA NITROGEN) 23 MG/DL (6-23); C-REACTIVE PROTEIN 68.2 MG/L (<8.0); CALCIUM, SERUM 9.6 MG/DL (8.5-10.4); CHLORIDE, SERUM 114 MMOL/L (96-112); CO2 (CARBON DIOXIDE) 24 MMOL/L (24-34); CPK 75 U/L (0-200); CREATININE 1.19 MG/DL (0.70-1.30); GFR AFRICAN AMERICAN 64 ML/MIN (>=60); GFR NON AFRICAN AMERICAN 55 ML/MIN (>=60); GLUCOSE, SERUM 102 MG/DL (60-99); PHOSPHORUS, SERUM 2.1 MG/DL (2.5-4.5); POTASSIUM, SERUM 3.8 MMOL/L (3.5-5.3); SODIUM, SERUM 146 MMOL/L (135-148)
[2017-01-21 07:52] LABS: SED RATE 35 MM/HR (0-15)
[2017-01-21 12:36] LABS: CSF APPEARANCE (NOT ORD) CLEAR (CLEAR); CSF BASO 0 % (NO REF RANGE); CSF COLOR (NOT ORD) COLORLESS (COLORLESS); CSF EOS 0 % (0-1); CSF LYMPH (NOT ORD) 8 % (28-96); CSF MONO 92 % (16-56); CSF RBC (NOT ORD) 0 MM3 (NO REFERENCE); CSF SEGS (NOT ORD) 0 % (0-7); CSF WBC (NOT ORD) 3 /uL (0-10); CSF XANTHROCHROMIA NEG (NEG)
[2017-01-21 13:26] LABS: 2ND TITER PATTERN HOMOGENEOUS; ANA PATTERN SPECKLED
[2017-01-22 05:52] LABS: BASOPHILS 0 %; EOSINOPHILS 0 %; HEMATOCRIT 42.9 % (40.0-51.0); HEMOGLOBIN 14.2 g/dL (13.6-17.8); IMMATURE GRANULOCYTES 0.5 %; IMMATURE GRANULOCYTES ABSOLUTE 0.03 10/3/uL (0.0-0.11); LYMPHOCYTES 9.9 %; LYMPHOCYTES ABSOLUTE 0.66 10/3/uL (0.67-4.30); MEAN CORPUS HGB CONC 33.1 g/dL (32.0-36.0); MEAN CORPUSCULAR HEMOGLOB 32.9 pg (26.0-34.0); MEAN CORPUSCULAR VOLUME 99.5 fL (80-100); MEAN PLATELET VOLUME 10.8 fL (9.2-13.0); MONOCYTES 4.1 %; MONOCYTES ABSOLUTE 0.27 10/3/uL (0.21-1.20); NEUTROPHILS 85.5 %; NEUTROPHILS ABSOLUTE 5.69 10/3/uL (2.02-8.40); PLATELET COUNT 198 10/3/uL (150-400); RBC DISTRIBUTION WIDTH 14.4 % (12.0-16.0); RED CELL COUNT 4.31 10/6/uL (4.7-6.1); WHITE BLOOD CELLS 6.7 10/3/uL (4.5-10.5)
[2017-01-22 05:54] LABS: MANUAL DIFF NO %
[2017-01-22 05:59] LABS: BUN (BLOOD UREA NITROGEN) 24 MG/DL (6-23); CALCIUM, SERUM 9.4 MG/DL (8.5-10.4); CHLORIDE, SERUM 115 MMOL/L (96-112); CO2 (CARBON DIOXIDE) 23 MMOL/L (24-34); CREATININE 1.07 MG/DL (0.70-1.30); GFR AFRICAN AMERICAN 73 ML/MIN (>=60); GFR NON AFRICAN AMERICAN 63 ML/MIN (>=60); GLUCOSE, SERUM 146 MG/DL (60-99); PHOSPHORUS, SERUM 2.1 MG/DL (2.5-4.5); POTASSIUM, SERUM 3.7 MMOL/L (3.5-5.3); SODIUM, SERUM 148 MMOL/L (135-148)
[2017-01-22 09:57] LABS: ANTI SS-A Positive (NEGATIVE); ANTI SS-B NEGATIVE (NEGATIVE)
[2017-01-23 05:08] LABS: BASOPHILS 0 %; EOSINOPHILS 0 %; HEMATOCRIT 44.5 % (40.0-51.0); HEMOGLOBIN 14.9 g/dL (13.6-17.8); IMMATURE GRANULOCYTES 0.6 %; IMMATURE GRANULOCYTES ABSOLUTE 0.05 10/3/uL (0.0-0.11); LYMPHOCYTES 9.1 %; LYMPHOCYTES ABSOLUTE 0.71 10/3/uL (0.67-4.30); MEAN CORPUS HGB CONC 33.5 g/dL (32.0-36.0); MEAN CORPUSCULAR HEMOGLOB 33.3 pg (26.0-34.0); MEAN CORPUSCULAR VOLUME 99.6 fL (80-100); MEAN PLATELET VOLUME 10.7 fL (9.2-13.0); MONOCYTES 4.9 %; MONOCYTES ABSOLUTE 0.38 10/3/uL (0.21-1.20); NEUTROPHILS 85.4 %; NEUTROPHILS ABSOLUTE 6.62 10/3/uL (2.02-8.40); PLATELET COUNT 202 10/3/uL (150-400); RBC DISTRIBUTION WIDTH 14.2 % (12.0-16.0); RED CELL COUNT 4.47 10/6/uL (4.7-6.1); WHITE BLOOD CELLS 7.8 10/3/uL (4.5-10.5)
[2017-01-23 05:09] LABS: MANUAL DIFF NO %
[2017-01-23 05:22] LABS: CALCIUM, SERUM 9.7 MG/DL (8.5-10.4); CHLORIDE, SERUM 112 MMOL/L (96-112); CO2 (CARBON DIOXIDE) 26 MMOL/L (24-34); CREATININE 1.16 MG/DL (0.70-1.30); GFR AFRICAN AMERICAN 66 ML/MIN (>=60); GFR NON AFRICAN AMERICAN 57 ML/MIN (>=60); POTASSIUM, SERUM 3.9 MMOL/L (3.5-5.3); SODIUM, SERUM 146 MMOL/L (135-148)
[2017-01-23 05:25] LABS: BUN (BLOOD UREA NITROGEN) 28 MG/DL (6-23); GLUCOSE, SERUM 112 MG/DL (60-99)
[2017-01-24 00:32] LABS: VITAMIN B1, WHOLE BLOOD 258 nmol/L (70-180)
[2017-01-24 04:40] LABS: BASOPHILS 0 %; EOSINOPHILS 0 %; HEMATOCRIT 43.2 % (40.0-51.0); HEMOGLOBIN 14.2 g/dL (13.6-17.8); IMMATURE GRANULOCYTES 0.6 %; IMMATURE GRANULOCYTES ABSOLUTE 0.04 10/3/uL (0.0-0.11); LYMPHOCYTES 8.5 %; LYMPHOCYTES ABSOLUTE 0.59 10/3/uL (0.67-4.30); MEAN CORPUS HGB CONC 32.9 g/dL (32.0-36.0); MEAN CORPUSCULAR HEMOGLOB 32.6 pg (26.0-34.0); MEAN CORPUSCULAR VOLUME 99.3 fL (80-100); MEAN PLATELET VOLUME 10.7 fL (9.2-13.0); MONOCYTES 3.6 %; MONOCYTES ABSOLUTE 0.25 10/3/uL (0.21-1.20); NEUTROPHILS 87.3 %; NEUTROPHILS ABSOLUTE 6.05 10/3/uL (2.02-8.40); PLATELET COUNT 180 10/3/uL (150-400); RBC DISTRIBUTION WIDTH 14.1 % (12.0-16.0); RED CELL COUNT 4.35 10/6/uL (4.7-6.1); WHITE BLOOD CELLS 6.9 10/3/uL (4.5-10.5)
[2017-01-24 04:41] LABS: MANUAL DIFF NO %
[2017-01-24 04:52] LABS: BUN (BLOOD UREA NITROGEN) 27 MG/DL (6-23); CALCIUM, SERUM 9.2 MG/DL (8.5-10.4); CHLORIDE, SERUM 111 MMOL/L (96-112); CO2 (CARBON DIOXIDE) 25 MMOL/L (24-34); CREATININE 1.03 MG/DL (0.70-1.30); GFR AFRICAN AMERICAN 76 ML/MIN (>=60); GFR NON AFRICAN AMERICAN 66 ML/MIN (>=60); PHOSPHORUS, SERUM 2.5 MG/DL (2.5-4.5); POTASSIUM, SERUM 3.4 MMOL/L (3.5-5.3); SODIUM, SERUM 145 MMOL/L (135-148)
[2017-01-24 04:53] LABS: GLUCOSE, SERUM 149 MG/DL (60-99)
[2017-01-25 05:25] LABS: BASOPHILS 0.1 %; BASOPHILS ABSOLUTE 0.01 10/3/uL (0.0-0.16); BUN (BLOOD UREA NITROGEN) 24 MG/DL (6-23); CHLORIDE, SERUM 110 MMOL/L (96-112); CO2 (CARBON DIOXIDE) 29 MMOL/L (24-34); CREATININE 1.05 MG/DL (0.70-1.30); EOSINOPHILS 0 %; GFR AFRICAN AMERICAN 75 ML/MIN (>=60); GFR NON AFRICAN AMERICAN 64 ML/MIN (>=60); GLUCOSE, SERUM 155 MG/DL (60-99); HEMATOCRIT 43.4 % (40.0-51.0); HEMOGLOBIN 14.3 g/dL (13.6-17.8); IMMATURE GRANULOCYTES ABSOLUTE 0.09 10/3/uL (0.0-0.11); LYMPHOCYTES 6.7 %; LYMPHOCYTES ABSOLUTE 0.58 10/3/uL (0.67-4.30); MEAN CORPUS HGB CONC 32.9 g/dL (32.0-36.0); MEAN CORPUSCULAR HEMOGLOB 32.7 pg (26.0-34.0); MEAN CORPUSCULAR VOLUME 99.3 fL (80-100); MEAN PLATELET VOLUME 10.8 fL (9.2-13.0); MONOCYTES 5.3 %; MONOCYTES ABSOLUTE 0.46 10/3/uL (0.21-1.20); NEUTROPHILS 86.9 %; NEUTROPHILS ABSOLUTE 7.55 10/3/uL (2.02-8.40); PLATELET COUNT 179 10/3/uL (150-400); POTASSIUM, SERUM 3.1 MMOL/L (3.5-5.3); RBC DISTRIBUTION WIDTH 13.9 % (12.0-16.0); RED CELL COUNT 4.37 10/6/uL (4.7-6.1); SODIUM, SERUM 147 MMOL/L (135-148); WHITE BLOOD CELLS 8.7 10/3/uL (4.5-10.5)
[2017-01-25 05:26] LABS: MANUAL DIFF NO %
[2017-01-25 17:43] LABS: BUN (BLOOD UREA NITROGEN) 23 MG/DL (6-23); CALCIUM, SERUM 9.4 MG/DL (8.5-10.4); CHLORIDE, SERUM 109 MMOL/L (96-112); CO2 (CARBON DIOXIDE) 29 MMOL/L (24-34); CREATININE 1.01 MG/DL (0.70-1.30); GFR AFRICAN AMERICAN 78 ML/MIN (>=60); GFR NON AFRICAN AMERICAN 68 ML/MIN (>=60); GLUCOSE, SERUM 127 MG/DL (60-99); POTASSIUM, SERUM 3.3 MMOL/L (3.5-5.3); SODIUM, SERUM 146 MMOL/L (135-148)
[2017-01-26 07:18] LABS: BASOPHILS 0.1 %; BASOPHILS ABSOLUTE 0.01 10/3/uL (0.0-0.16); EOSINOPHILS 0.1 %; EOSINOPHILS ABSOLUTE 0.01 10/3/uL (0.0-0.53); HEMATOCRIT 45.6 % (40.0-51.0); HEMOGLOBIN 14.8 g/dL (13.6-17.8); IMMATURE GRANULOCYTES 1.2 %; LYMPHOCYTES 12.9 %; LYMPHOCYTES ABSOLUTE 1.04 10/3/uL (0.67-4.30); MEAN CORPUS HGB CONC 32.5 g/dL (32.0-36.0); MEAN CORPUSCULAR HEMOGLOB 32.7 pg (26.0-34.0); MEAN CORPUSCULAR VOLUME 100.7 fL (80-100); MEAN PLATELET VOLUME 10.7 fL (9.2-13.0); MONOCYTES 12.2 %; MONOCYTES ABSOLUTE 0.98 10/3/uL (0.21-1.20); NEUTROPHILS 73.5 %; NEUTROPHILS ABSOLUTE 5.92 10/3/uL (2.02-8.40); PLATELET COUNT 172 10/3/uL (150-400); RBC DISTRIBUTION WIDTH 14.3 % (12.0-16.0); RED CELL COUNT 4.53 10/6/uL (4.7-6.1); WHITE BLOOD CELLS 8.1 10/3/uL (4.5-10.5)
[2017-01-26 07:22] LABS: MANUAL DIFF NO %
[2017-01-26 07:26] LABS: BUN (BLOOD UREA NITROGEN) 22 MG/DL (6-23); CALCIUM, SERUM 8.6 MG/DL (8.5-10.4); CHLORIDE, SERUM 109 MMOL/L (96-112); CO2 (CARBON DIOXIDE) 30 MMOL/L (24-34); CREATININE 1.05 MG/DL (0.70-1.30); GFR AFRICAN AMERICAN 75 ML/MIN (>=60); GFR NON AFRICAN AMERICAN 64 ML/MIN (>=60); GLUCOSE, SERUM 108 MG/DL (60-99); POTASSIUM, SERUM 3.3 MMOL/L (3.5-5.3); SODIUM, SERUM 145 MMOL/L (135-148)
[2017-01-26 07:27] LABS: PHOSPHORUS, SERUM 2.7 MG/DL (2.5-4.5)
[2017-01-26 18:55] LABS: BUN (BLOOD UREA NITROGEN) 23 MG/DL (6-23); CHLORIDE, SERUM 108 MMOL/L (96-112); CO2 (CARBON DIOXIDE) 30 MMOL/L (24-34); CREATININE 1.09 MG/DL (0.70-1.30); GFR AFRICAN AMERICAN 71 ML/MIN (>=60); GFR NON AFRICAN AMERICAN 62 ML/MIN (>=60); GLUCOSE, SERUM 165 MG/DL (60-99); PHOSPHORUS, SERUM 2.3 MG/DL (2.5-4.5); POTASSIUM, SERUM 4.1 MMOL/L (3.5-5.3); SODIUM, SERUM 144 MMOL/L (135-148)
[2017-01-27 06:37] LABS: BASOPHILS 0.1 %; BASOPHILS ABSOLUTE 0.01 10/3/uL (0.0-0.16); EOSINOPHILS 0.3 %; EOSINOPHILS ABSOLUTE 0.02 10/3/uL (0.0-0.53); HEMATOCRIT 42.8 % (40.0-51.0); HEMOGLOBIN 13.8 g/dL (13.6-17.8); IMMATURE GRANULOCYTES 1.7 %; IMMATURE GRANULOCYTES ABSOLUTE 0.12 10/3/uL (0.0-0.11); LYMPHOCYTES 13.2 %; LYMPHOCYTES ABSOLUTE 0.95 10/3/uL (0.67-4.30); MEAN CORPUS HGB CONC 32.2 g/dL (32.0-36.0); MEAN CORPUSCULAR HEMOGLOB 32.6 pg (26.0-34.0); MEAN CORPUSCULAR VOLUME 101.2 fL (80-100); MEAN PLATELET VOLUME 10.5 fL (9.2-13.0); MONOCYTES 11.5 %; MONOCYTES ABSOLUTE 0.83 10/3/uL (0.21-1.20); NEUTROPHILS 73.2 %; NEUTROPHILS ABSOLUTE 5.26 10/3/uL (2.02-8.40); PLATELET COUNT 140 10/3/uL (150-400); RBC DISTRIBUTION WIDTH 14.2 % (12.0-16.0); RED CELL COUNT 4.23 10/6/uL (4.7-6.1); WHITE BLOOD CELLS 7.2 10/3/uL (4.5-10.5)
[2017-01-27 06:41] LABS: MANUAL DIFF NO %
[2017-01-27 06:52] LABS: BUN (BLOOD UREA NITROGEN) 22 MG/DL (6-23); CALCIUM, SERUM 8.4 MG/DL (8.5-10.4); CHLORIDE, SERUM 108 MMOL/L (96-112); CO2 (CARBON DIOXIDE) 30 MMOL/L (24-34); CREATININE 0.98 MG/DL (0.70-1.30); GFR AFRICAN AMERICAN 81 ML/MIN (>=60); GFR NON AFRICAN AMERICAN 70 ML/MIN (>=60); GLUCOSE, SERUM 135 MG/DL (60-99); PHOSPHORUS, SERUM 2.2 MG/DL (2.5-4.5); POTASSIUM, SERUM 3.7 MMOL/L (3.5-5.3); SODIUM, SERUM 145 MMOL/L (135-148)
[2017-01-27 11:53] LABS: ACETYLCHOLINE RECEPT BLOCK AB 20%
[2017-01-27 12:01] LABS: ACETYLCHOLINE RECEPT MODUL AB 12%
== END 2017-01-27 19:00 | DRG 871 ==
LOC: ER 22:43 → 5SO 01-19 03:37
PROVIDERS: Emergency Medicine; Internal Medicine; Internal Medicine Pulmonary Disease; Nurse Practitioner Family; Psychiatry & Neurology Neurology
PROC: 009U3ZX Drainage of Spinal Canal, Percutaneous Approach, Diagnostic (ICD-10-PCS; principal; 2017-01-21)
PROC: 0DH63UZ Insertion of Feeding Device into Stomach, Percutaneous Approach (ICD-10-PCS; 2017-01-24)
PROC: 3E0G76Z Introduction of Nutritional Substance into Upper GI, Via Natural or Artificial Opening (ICD-10-PCS; 2017-01-25)
DX: A41.9 Sepsis, unspecified organism (principal); J69.0 Pneumonitis due to inhalation of food and vomit; N17.9 Acute kidney failure, unspecified; J96.11 Chronic respiratory failure with hypoxia; R13.10 Dysphagia, unspecified; F11.20 Opioid dependence, uncomplicated; R65.20 Severe sepsis without septic shock; J44.9 Chronic obstructive pulmonary disease, unspecified; I12.9 Hypertensive chronic kidney disease with stage 1 through stage 4 chronic kidney disease, or unspecified chronic kidney disease; N18.9 Chronic kidney disease, unspecified; Z99.81 Dependence on supplemental oxygen; G47.33 Obstructive sleep apnea (adult) (pediatric); I25.10 Atherosclerotic heart disease of native coronary artery without angina pectoris; R47.1 Dysarthria and anarthria; G56.01 Carpal tunnel syndrome, right upper limb; Z79.82 Long term (current) use of aspirin; I25.2 Old myocardial infarction; Z79.899 Other long term (current) drug therapy
CPT/HCPCS: 62270; 70544; 70547; 70551; 71020; 74176; 74230; 77003; 80048; 80053; 81001; 82009; 82164; 82533; 82550; 82607; 82746; 82945; 83519; 83519-59; 83605; 83735; 84100; 84145; 84157; 84425; 84439; 84443; 85025; 85610; 85652; 85730; 86039; 86140; 86235; 86235-59; 86255; 86592; 87040; 87070; 87077; 87186; 87205; 87641; 88112; 89051; 92526-GN; 92611-GN; 93005; 94640; 95886; 95887; 95909; 95937; 96365; 96375; 97162-GP; 99285; A9270-GY; C9113; G8978-CL-GP; G8979-CJ-GP; G8996-CN-GN; G8997-CN-GN; G8998-CN-GN; J0360; J0692; J2543; J2920; J2930; J3370; J3475